=== PATIENT | female | born 2000 | race Caucasian/White ===

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

== ENCOUNTER 2019-01-19 07:06 | Emergency (ER) | payer OTHER ==
[2019-01-19] MEDS ORDERED: Sodium Chloride 0.9% 1,000 ML IV ONE (07:40)
--- NOTE | 2019-01-19 08:04 | C.PDOC ---
History Of Present Illness 18 year old female patient presents to the emergency room complaining of epigastric abdominal pain since 9 pm last night. Associated symptoms includes nausea and vomiting. Patient thinks her symptoms are from eating [employer]. Patient did not take any medication and only drank water. Patient notes she just vomited liquid and denies vomiting bile, hematemesis, fever, diarrhea, urinary symptoms, dizziness, shortness of breath and chest pain. Time Seen by Provider: 01/19/19 07:26 Chief Complaint (Nursing): Abdominal Pain History Per: Patient History/Exam Limitations: no limitations Onset/Duration Of Symptoms: Hrs Current Symptoms Are (Timing): Still Present Context: Food Location Of Pain/Discomfort: Epigastric Past Medical History Reviewed: Historical Data, Nursing Documentation, Vital Signs Vital Signs: Last Vital Signs Temp 97.8 F 01/19/19 07:11 Pulse 89 01/19/19 07:11 Resp 18 01/19/19 07:11 BP 125/83 01/19/19 07:11 Pulse Ox 99 01/19/19 07:11 - [facility] Procedures OTHER SKIN & SUBQ I D (06/07/13) Family History: States: No Known Family Hx - Social History Hx Tobacco Use: No Hx Alcohol Use: No Hx Substance Use: No - Immunization History Hx Tetanus Toxoid Vaccination: Yes Hx Influenza Vaccination: Yes Hx Pneumococcal Vaccination: No Review Of Systems Constitutional: Negative for: Fever Cardiovascular: Negative for: Chest Pain Respiratory: Negative for: Shortness of Breath Gastrointestinal: Positive for: Nausea, Vomiting, Abdominal Pain (epigastric ). Negative for: Diarrhea, Hematemesis, Other (bile in vomit) Genitourinary: Negative for: Dysuria, Frequency, Hematuria, Vaginal Discharge Neurological: Negative for: Dizziness Physical Exam - Physical Exam Appears: Non-toxic, No Acute Distress Skin: Warm, Dry, No Rash Head: Atraumatic, Normacephalic Eye(s): bilateral: Normal Inspection, EOMI Oral Mucosa: Moist Throat: Normal Neck: Supple Chest: Symmetrical Cardiovascular: Rhythm Regular, No Murmur Respiratory: Normal Breath Sounds, No Rales, No Rhonchi, No Wheezing Gastrointestinal/Abdominal: Bowel Sounds, Soft, Tenderness (mild epigastric tenderness on deep palpation ), No Distention, No Guarding, No Rebound Back: No CVA Tenderness Extremity: Bilateral: Atraumatic, Normal ROM Neurological/Psych: Oriented x3, Normal Speech Gait: Steady ED Course And Treatment - Laboratory Results Result Diagrams: 01/19/19 08:00 01/19/19 08:00 Lab Interpretation: Abnormal O2 Sat by Pulse Oximetry: 99 (RA) Pulse Ox Interpretation: Normal - CT Scan/US abdominal Other Rad Studies (CT/US): Read By Radiologist, Radiology Report Reviewed CT/US Interpretation: Accession No. : [id number]. Patient Name / ID : MATTIE Cordero / [id number]. Exam Date : 01/19/2019 09:22:30 ( Approved ). Study Comment : Sex / Age : F / 18Y. Creator : Donna Daley MD. Dictator : Donna Daley MD. Jig And Fixture Builder Apprentice : Mixer Operator Helper Hot Metal : Shukri Daley MD. Approver2 : Report Date : 01/19/2019 09:57:26. My Comment : . HISTORY: epigastric abd pain w. vomiting. COMPARISON: None available. TECHNIQUE: Sonographic evaluation of the abdomen. FINDINGS: LIVER: Measures 16.0 cm in sagittal dimension and appears within normal limits of echotexture. No focal hepatic mass identified. The main portal vein appears patent with normal directional flow. No intrahepatic bile duct dilatation. GALLBLADDER: 3 mm echogenic immobile focus consistent with polyp. No gallstones. No gallbladder wall thickening. Negative sonographic England's sign as assessed by the helpdesk analyst. COMMON BILE DUCT: Measures 2 mm. PANCREAS: Not well visualized. RIGHT KIDNEY: Measures 10.9 x 4.4 x 5.0 cm. No obstructing calculus or hydronephrosis identified. LEFT KIDNEY: Measures 11.9 x 5.9 x 5.4 cm. No obstructing calculus or hydronephrosis identified. SPLEEN: Measures approximately 9.4 cm. AORTA: Limited views appear unremarkable. IVC: Limited views appear unremarkable. OTHER FINDINGS: None. IMPRESSION: 3 mm immobile echogenic gallbladder focus consistent with polyp. Medical Decision Making Medical Decision Making: Impression: Abdominal pain with nausea and vomiting Plans: -- CBC -- CMP -- pepcid -- zofran -- IV fluids Labs reviewed: WBC elevated. CMP unremarkable no elevated Tbili, LFT or alk bre s. 0904 Ultrasound of abdomen ordered. Patient remained well in no distress and asked for sherin satish, tolerated PO challenge. 1000 US reviewed 3 mm echogenic immobile focus consistent with polyp. No gallstones. No gallbladder wall thickening. Negative sonographic England's sign as assessed by the helpdesk analyst. On second re-eval, the patient was sitting upright content, chatting with family at bedside. She reported feeling better and comfortable going home. Provided copy of radiology report and blood work. Rx given. Disposition Counseled Patient/Family Regarding: Diagnosis, Need For Followup, Rx Given - Disposition Disposition: HOME/ ROUTINE Disposition Time: 10:13 Condition: IMPROVED Additional Instructions: Take Zofran as needed for any nausea or vomiting Drink fluids (gatorade or sport drink) to stay hydrated Follow up with your doctor. Return to ER if pain worsens or other concern Prescriptions: Ondansetron ODT [Zofran ODT] 1 odt PO BID PRN #6 odt PRN Reason: Nausea/Vomiting Instructions: Nausea and Vomiting, Adult - POA Present On Arrival: None - Clinical Impression Clinical Impression: Epigastric abdominal pain, Vomiting - PA / TUBE SKIVER / Resident Statement / has reviewed & agrees with the documentation as recorded. - Scribe Statement The provider has reviewed the documentation as recorded by the Edwige Sarah Do All medical record entries made by the Luisibuna were at my direction and personally dictated by me. I have reviewed the chart and agree that the record accurately reflects my personal performance of the history, physical exam, medical decision making, and the department course for this patient. I have also personally directed, reviewed, and agree with the discharge instructions and disposition.
[2019-01-19 08:05] LABS: BASO # 0.1 K/uL (0.0-0.2); EOS # 0.1 K/uL (0.0-0.7); EOS % 0.6 % (0.0-4.0); HEMOGLOBIN 13.2 g/dL (11.0-16.0); LYMPH # 1.5 K/uL (1.0-4.3); LYMPH % 9.6 % (20.0-40.0); MONO # 0.8 K/uL (0.0-0.8)
[2019-01-19] MEDS ORDERED: Sodium Chloride 0.9% 1,000 ML ONE (08:07)
[2019-01-19 08:10] LABS: BASO % 0.6 % (0.0-2.0); MEAN CELL VOLUME 87.2 fL (81.0-99.0); MEAN CORPUSCULAR HEMOGLOBIN 28.5 pg (27.0-31.0); MEAN CORPUSCULAR HGB CONC 32.7 g/dL (33.0-37.0); MONO % 4.9 % (0.0-10.0); NEUT # 13.1 K/uL (1.8-7.0); NEUT % 84.3 % (50.0-75.0); PLATELET COUNT 296 K/uL (130-400); RBC 4.64 Mil/uL (3.80-5.20); RED CELL DISTRIBUTION WIDTH 16.2 % (11.5-14.5); WHITE BLOOD COUNT 15.6 K/uL (4.8-10.8)
[2019-01-19 08:18] LABS: ALB/GLOB RATIO 1.5 (1.0-2.1); ALBUMIN 4.7 g/dL (3.5-5.0); ALT/SGPT 23 U/L (9-52); AST/SGOT 27 U/L (14-36); BLOOD UREA NITROGEN 10 mg/dL (7-17); CALCIUM 9.4 mg/dl (8.6-10.4); GFR NON-AFRICAN AMERICAN > 60
[2019-01-19 08:59] LABS: EOSINOPHIL 1 % (0-4); LYMPHOCYTE 12 % (20-40); MONOCYTE 4 % (0-10); NEUTROPHIL 83 % (50-75); PLATELET ESTIMATE NORMAL (NORMAL); TOTAL CELLS COUNTED 100
[2019-01-19 09:07] LABS: SQUAMOUS EPITHIAL 1 /hpf (0-5); URINE BACTERIA RARE (<OCC); URINE BILIRUBIN NEGATIVE (NEGATIVE); URINE BLOOD NEGATIVE (NEGATIVE); URINE CLARITY Clear (Clear); URINE COLOR Yellow (YELLOW); URINE GLUCOSE (UA) NORMAL (Normal); URINE LEUKOCYTE ESTERASE NEG Leu/uL (Negative); URINE PROTEIN NEGATIVE (NEGATIVE); URINE UROBILINOGEN NORMAL mg/dL (0.2-1.0)
[2019-01-19 09:57] VITALS: BP 110/70; PULSE 70; RESP 20; TEMP 99.1
--- NOTE | 2019-01-19 10:01 | US ---
HISTORY: epigastric abd pain w. vomiting COMPARISON: None available. TECHNIQUE: Sonographic evaluation of the abdomen. FINDINGS: LIVER: Measures 16.0 cm in sagittal dimension and appears within normal limits of echotexture. No focal hepatic mass identified. The main portal vein appears patent with normal directional flow. No intrahepatic bile duct dilatation. GALLBLADDER: 3 mm echogenic immobile focus consistent with polyp. No gallstones. No gallbladder wall thickening. Negative sonographic England's sign as assessed by the hog scraper. COMMON BILE DUCT: Measures 2 mm. PANCREAS: Not well visualized. RIGHT KIDNEY: Measures 10.9 x 4.4 x 5.0 cm. No obstructing calculus or hydronephrosis identified. LEFT KIDNEY: Measures 11.9 x 5.9 x 5.4 cm. No obstructing calculus or hydronephrosis identified. SPLEEN: Measures approximately 9.4 cm. AORTA: Limited views appear unremarkable. IVC: Limited views appear unremarkable. OTHER FINDINGS: None. IMPRESSION: 3 mm immobile echogenic gallbladder focus consistent with polyp.
[2019-01-19 10:14] VITALS: O2SAT 99
== END 2019-01-19 10:22 | disposition home or self-care (01) ==
LOC: C.ER 07:06
DX: R10.13 Epigastric pain (principal); R11.10 Vomiting, unspecified
CPT/HCPCS: 76700; 80053; 81001; 85025; 96361; 96374; 96375; 99284; J2405; J7030

== ENCOUNTER 2019-03-03 05:46 | Emergency (ER) | payer OTHER ==
[2019-03-03] MEDS ORDERED: Sodium Chloride 0.9% 1,000 ML IV STA (07:26)
[2019-03-03] MEDS ORDERED: Sodium Chloride 0.9% 1,000 ML ONE (07:36)
[2019-03-03 07:41] LABS: BASO % 0.6 % (0.0-2.0); EOS % 0.6 % (0.0-4.0); HEMOGLOBIN 13.1 g/dL (11.0-16.0); LYMPH # 0.5 K/uL (1.0-4.3); LYMPH % 8.9 % (20.0-40.0); MEAN CELL VOLUME 87.3 fL (81.0-99.0); MEAN CORPUSCULAR HEMOGLOBIN 29.2 pg (27.0-31.0); MEAN CORPUSCULAR HGB CONC 33.4 g/dL (33.0-37.0); MEAN PLATELET VOLUME 8.4 fL (7.2-11.7); MONO # 0.6 K/uL (0.0-0.8); NEUT # 4.6 K/uL (1.8-7.0); NEUT % 78.9 % (50.0-75.0); PLATELET COUNT 207 K/uL (130-400); RBC 4.48 Mil/uL (3.80-5.20); RED CELL DISTRIBUTION WIDTH 15.9 % (11.5-14.5)
[2019-03-03 07:47] LABS: WHITE BLOOD COUNT 5.8 K/uL (4.8-10.8)
[2019-03-03 07:55] LABS: ALB/GLOB RATIO 1.7 (1.0-2.1); ALBUMIN 4.5 g/dL (3.5-5.0); ALT/SGPT 9 U/L (9-52); AST/SGOT 33 U/L (14-36); BLOOD UREA NITROGEN 9 mg/dL (7-17); CALCIUM 8.8 mg/dl (8.6-10.4); GFR NON-AFRICAN AMERICAN > 60; LIPASE 35 U/L (23-300)
--- NOTE | 2019-03-03 08:23 | C.PDOC ---
History Of Present Illness 18 year old female presents for evaluation of abdominal pain associated with vomiting, subjective fever, and decreased PO intake for 4 days. The patient notes arriving from [place] 4 days ago. She notes dark vomit. Denies diarrh ea, sick contact, urinary symptoms, and any other associated symptoms. SHx: hernia at 1 years old <Polly Rajput - Last Filed: 03/03/19 09:30> History Per: Patient History/Exam Limitations: no limitations Onset/Duration Of Symptoms: Days (x4) Current Symptoms Are (Timing): Still Present Context: Travel Location Of Pain/Discomfort: Diffuse Radiation Of Pain To:: None Associated Symptoms: Fever (subjective ), Vomiting Recent travel outside of the [place]: Yes ([place]) <Polly Rajput - Last Filed: 03/03/19 09:30> <Amelia Recio - Last Filed: 03/07/19 13:13> Time Seen by Provider: 03/03/19 07:14 Chief Complaint (Nursing): GI Problem Past Medical History Reviewed: Historical Data, Nursing Documentation, Vital Signs Vital Signs: Last Vital Signs Temp 98.8 F 03/03/19 06:07 Pulse 62 03/03/19 06:07 Resp 20 03/03/19 06:07 BP 113/77 03/03/19 06:07 Pulse Ox 97 03/03/19 06:07 - [facility] Procedures OTHER SKIN & SUBQ I D (06/07/13) Family History: States: Unknown Family Hx - Social History Hx Tobacco Use: No Hx Alcohol Use: No Hx Substance Use: No - Immunization History Hx Tetanus Toxoid Vaccination: Yes Hx Influenza Vaccination: Yes Hx Pneumococcal Vaccination: No <Polyl Rajput - Last Filed: 03/03/19 09:30> Vital Signs: Last Vital Signs Temp 98.6 F 03/03/19 09:39 Pulse 68 03/03/19 09:39 Resp 18 03/03/19 09:39 BP 116/74 03/03/19 09:39 Pulse Ox 99 03/03/19 09:39 - Medical History PMH: No Chronic Diseases - [facility] Procedures OTHER SKIN & SUBQ I D (06/07/13) Family History: States: Unknown Family Hx <Amelia Recio - Last Filed: 03/07/19 13:13> Review Of Systems Constitutional: Positive for: Fever (subjective.) Gastrointestinal: Positive for: Nausea, Vomiting, Abdominal Pain. Negative for: Diarrhea <Polly Rajput - Last Filed: 03/03/19 09:30> Physical Exam - Physical Exam Appears: Well, No Acute Distress Skin: Warm, Dry Head: Atraumatic, Normacephalic Eye(s): bilateral: Normal Inspection Oral Mucosa: Moist Neck: Normal ROM, Supple Chest: Symmetrical, No Deformity Cardiovascular: Rhythm Regular, No Murmur Respiratory: Normal Breath Sounds, No Rales, No Rhonchi, No Wheezing Gastrointestinal/Abdominal: Normal Exam, Soft, No Tenderness Back: Normal Inspection, No CVA Tenderness Extremity: Bilateral: Atraumatic, Normal Color And Temperature, Normal ROM Neurological/Psych: Oriented x3, Normal Speech, Normal Cognition <Polly Rajput - Last Filed: 03/03/19 09:30> ED Course And Treatment - Laboratory Results Result Diagrams: 03/03/19 07:36 03/03/19 07:36 Lab Results: Total Bilirubin 0.4 mg/dL (0.2-1.3) 03/03/19 07:36 AST 33 U/L (14-36) 03/03/19 07:36 ALT 9 U/L (9-52) D 03/03/19 07:36 Alkaline Phosphatase 70 U/L (38-126) 03/03/19 07:36 Total Protein 7.0 g/dL (6.3-8.3) 03/03/19 07:36 Albumin 4.5 g/dL (3.5-5.0) 03/03/19 07:36 Globulin 2.6 gm/dL (2.2-3.9) 03/03/19 07:36 Albumin/Globulin Ratio 1.7 (1.0-2.1) 03/03/19 07:36 Lipase 35 U/L (23-300) 03/03/19 07:36 O2 Sat by Pulse Oximetry: 97 (RA) Pulse Ox Interpretation: Normal <Polly Rajput Last Filed: 03/03/19 09:30> - Laboratory Results Result Diagrams: 03/03/19 07:36 03/03/19 07:36 Lab Results: Total Bilirubin 0.4 mg/dL (0.2-1.3) 03/03/19 07:36 AST 33 U/L (14-36) 03/03/19 07:36 ALT 9 U/L (9-52) D 03/03/19 07:36 Alkaline Phosphatase 70 U/L (38-126) 03/03/19 07:36 Total Protein 7.0 g/dL (6.3-8.3) 03/03/19 07:36 Albumin 4.5 g/dL (3.5-5.0) 03/03/19 07:36 Globulin 2.6 gm/dL (2.2-3.9) 03/03/19 07:36 Albumin/Globulin Ratio 1.7 (1.0-2.1) 03/03/19 07:36 Lipase 35 U/L (23-300) 03/03/19 07:36 Urine Color Fransisca (YELLOW) 03/03/19 08:44 Urine Clarity Hazy (Clear) 03/03/19 08:44 Urine pH 5.0 (5.0-8.0) 03/03/19 08:44 Ur Specific [place] 1.035 (1.003-1.030) H 03/03/19 08:44 Urine Protein 2+ mg/dL (NEGATIVE) H 03/03/19 08:44 Urine Glucose (UA) Normal mg/dL (Normal) 03/03/19 08:44 Urine Ketones 1+ mg/dL (NEGATIVE) H 03/03/19 08:44 Urine Blood 3+ (NEGATIVE) H 03/03/19 08:44 Urine Nitrate Negative (NEGATIVE) 03/03/19 08:44 Urine Bilirubin Negative (NEGATIVE) 03/03/19 08:44 Urine Urobilinogen 4.0 mg/dL (0.2-1.0) H 03/03/19 08:44 Ur Leukocyte Esterase Neg Marvel/uL (Negative) 03/03/19 08:44 Urine WBC (Auto) 7 /hpf (0-5) H 03/03/19 08:44 Urine RBC (Auto) 384 /hpf (0-3) H 03/03/19 08:44 Ur Squamous Epith Cells 2 /hpf (0-5) 03/03/19 08:44 Urine HCG, Qual Negative (NEGATIVE) 03/03/19 08:44 Urine HCG, Qual Negative (NEGATIVE) 03/03/19 08:44 <Amelia Recio - Last Filed: 03/07/19 13:13> Medical Decision Making Medical Decision Making: Initial plan: -Blood sent. -Pepcid -Zofran -HCG Urine -Urinalysis Progress/Update: Pt stable for discharge home. Prescribed Pepcid and advised to return if symptoms worsen. <Polly Rajput - Last Filed: 03/03/19 09:30> Disposition <Polly Rajput - Last Filed: 03/03/19 09:30> - Disposition Disposition Time: 09:40 - POA Present On Arrival: None <Amelia Recio - Last Filed: 03/07/19 13:13> - Disposition Referrals: [facility] [Outside] Disposition: HOME/ ROUTINE Condition: STABLE Additional Instructions: Follow up with the medical doctor within 1-2 days. Return if worsened. Prescriptions: Famotidine [Pepcid] 20 mg PO BID #20 tab Instructions: Viral Syndrome (DC), Gastritis Forms: [employer] (Occitan) - Clinical Impression Clinical Impression: Abdominal pain, Gastritis - PA / DYNAMIC ETCHING PROCESSOR / Resident Statement MD/DO has reviewed & agrees with the documentation as recorded. - Scribe Statement The provider has reviewed the documentation as recorded by the Scribe (Ofelia Antoine) All medical record entries made by the Scribe were at my direction and personally dictated by me. I have reviewed the chart and agree that the record accurately reflects my personal performance of the history, physical exam, medical decision making, and the department course for this patient. I have also personally directed, reviewed, and agree with the discharge instructions and disposition. <Polly Rajput - Last Filed: 03/03/19 09:30>
[2019-03-03 08:44] LABS: LYMPHOCYTE 7 % (20-40); MONOCYTE 8 % (0-10); NEUTROPHIL 85 % (50-75); PLATELET ESTIMATE NORMAL (NORMAL); TOTAL CELLS COUNTED 100
[2019-03-03 08:47] LABS: ANISOCYTOSIS SLIGHT
[2019-03-03 08:50] LABS: HYPOCHROMIC SLIGHT
[2019-03-03 08:51] LABS: SQUAMOUS EPITHIAL 2 /hpf (0-5); URINE BILIRUBIN NEGATIVE (NEGATIVE); URINE BLOOD 3+ (NEGATIVE); URINE CLARITY Hazy (Clear); URINE COLOR Amber (YELLOW); URINE GLUCOSE (UA) NORMAL (Normal); URINE LEUKOCYTE ESTERASE NEG Leu/uL (Negative); URINE PROTEIN 2+ mg/dL (NEGATIVE)
[2019-03-03 08:52] LABS: LARGE PLATELETS PRESENT
[2019-03-03 08:53] LABS: HCG,QUALITATIVE URINE NEGATIVE (NEGATIVE)
[2019-03-03 09:40] VITALS: BP 116/74; PULSE 68; RESP 18; TEMP 98.6; O2SAT 99
--- NOTE | 2019-03-03 13:35 | RAD ---
Date of service: 03/03/2019 PROCEDURE: CHEST RADIOGRAPH, 1 VIEW HISTORY: abd pain COMPARISON: No prior similar study available for comparison FINDINGS: LUNGS: Clear. PLEURA: No pneumothorax or pleural fluid seen. CARDIOVASCULAR: No aortic atherosclerotic calcification present. Normal. OSSEOUS STRUCTURES: No significant abnormalities. VISUALIZED UPPER ABDOMEN: Normal. OTHER FINDINGS: None. IMPRESSION: No active disease.
== END 2019-03-03 09:43 | disposition home or self-care (01) ==
LOC: C.ER 05:46
DX: K29.70 Gastritis, unspecified, without bleeding (principal); R10.9 Unspecified abdominal pain
CPT/HCPCS: 71045; 80053; 81001; 83690; 84703; 85025; 96361; 96374; 96375; 99285; J2405; J7030

== ENCOUNTER 2019-04-14 07:21 | Emergency (ER) | payer OTHER ==
[2019-04-14 07:38] VITALS: TEMP 98.1; O2SAT 99
[2019-04-14] MEDS ORDERED: Sodium Chloride 0.9% 1,000 ML IV ONE (07:43)
[2019-04-14] MEDS ORDERED: Sodium Chloride 0.9% 1,000 ML ONE (07:51)
[2019-04-14 08:01] LABS: BASO % 0.5 % (0.0-2.0); EOS # 0.1 K/uL (0.0-0.7); EOS % 0.7 % (0.0-4.0); HEMOGLOBIN 13.1 g/dL (11.0-16.0); LYMPH # 1.9 K/uL (1.0-4.3); LYMPH % 19.2 % (20.0-40.0); MEAN CELL VOLUME 87.9 fL (81.0-99.0); MEAN CORPUSCULAR HEMOGLOBIN 30.3 pg (27.0-31.0); MEAN CORPUSCULAR HGB CONC 34.4 g/dL (33.0-37.0); MEAN PLATELET VOLUME 7.9 fL (7.2-11.7); MONO # 0.7 K/uL (0.0-0.8); MONO % 6.7 % (0.0-10.0); NEUT # 7.1 K/uL (1.8-7.0); NEUT % 72.9 % (50.0-75.0); RBC 4.32 Mil/uL (3.80-5.20); RED CELL DISTRIBUTION WIDTH 15.4 % (11.5-14.5)
[2019-04-14 08:03] LABS: WHITE BLOOD COUNT 9.7 K/uL (4.8-10.8)
[2019-04-14 08:17] LABS: ALB/GLOB RATIO 1.5 (1.0-2.1); ALBUMIN 4.3 g/dL (3.5-5.0); ALT/SGPT 17 U/L (9-52); AST/SGOT 32 U/L (14-36); BLOOD UREA NITROGEN 10 mg/dL (7-17); CALCIUM 9.4 mg/dl (8.6-10.4); GFR NON-AFRICAN AMERICAN > 60; LIPASE 40 U/L (23-300)
--- NOTE | 2019-04-14 08:23 | C.PDOC ---
History Of Present Illness 19 year old female presents to the ED complaining of vomiting for the last 2 days. Reports she had a lot of mixed drinks 2 days ago and developed vomiting afterwards. Notes vomiting progressed over the next day and is associated with 3 episodes of loose stools. Reports improvement of symptoms today. Denies any GI bleeding, dysuria, hematuria, back pain, fever or chills. Denies any sick contacts or recent travels. Time Seen by Provider: 04/14/19 07:34 Chief Complaint (Nursing): Abdominal Pain History Per: Patient History/Exam Limitations: no limitations Onset/Duration Of Symptoms: Days (2) Current Symptoms Are (Timing): Still Present Associated Symptoms: Vomiting, Diarrhea. denies: Fever, Chills, Back Pain, Chest Pain, Urinary Symptoms Past Medical History Reviewed: Historical Data, Nursing Documentation, Vital Signs Vital Signs: Last Vital Signs Temp 98.1 F 04/14/19 07:34 Pulse 62 04/14/19 07:34 Resp 17 04/14/19 07:34 BP 121/79 04/14/19 07:34 Pulse Ox 99 04/14/19 07:34 Primary Care Provider: FAMILY PROVIDER,NO - Medical History PMH: No Chronic Diseases Other Surgeries: Hx of surgeries - [facility] Procedures OTHER SKIN & SUBQ I D (06/07/13) Family History: States: No Known Family Hx - Social History Hx Tobacco Use: No Hx Alcohol Use: Yes Hx Substance Use: No - Immunization History Hx Tetanus Toxoid Vaccination: Yes Hx Influenza Vaccination: Yes Hx Pneumococcal Vaccination: No Review Of Systems Except As Marked, All Systems Reviewed And Found Negative. Constitutional: Negative for: Fever, Chills Respiratory: Negative for: Shortness of Breath Gastrointestinal: Positive for: Vomiting, Diarrhea. Negative for: Hematochezia, Hematemesis Genitourinary: Negative for: Dysuria, Hematuria Physical Exam - Physical Exam Appears: Non-toxic, No Acute Distress Skin: Warm, Dry, No Rash Head: Normacephalic Eye(s): bilateral: Normal Inspection Nose: Normal Oral Mucosa: Moist Neck: Supple Chest: Symmetrical Cardiovascular: Rhythm Regular Respiratory: Normal Breath Sounds, No Rales, No Rhonchi, No Wheezing Gastrointestinal/Abdominal: Soft, No Tenderness Neurological/Psych: Oriented x3, Normal Speech Gait: Steady ED Course And Treatment - Laboratory Results Result Diagrams: 04/14/19 07:58 04/14/19 07:58 Lab Results: Total Bilirubin 0.5 mg/dL (0.2-1.3) 04/14/19 07:58 AST 32 U/L (14-36) 04/14/19 07:58 ALT 17 U/L (9-52) 04/14/19 07:58 Alkaline Phosphatase 71 U/L (38-126) 04/14/19 07:58 Total Protein 7.2 g/dL (6.3-8.3) 04/14/19 07:58 Albumin 4.3 g/dL (3.5-5.0) 04/14/19 07:58 Globulin 2.9 gm/dL (2.2-3.9) 04/14/19 07:58 Albumin/Globulin Ratio 1.5 (1.0-2.1) 04/14/19 07:58 Lipase 40 U/L (23-300) 04/14/19 07:58 O2 Sat by Pulse Oximetry: 99 (RA) Pulse Ox Interpretation: Normal - Other Rad CXR X-Ray: Viewed By Me, Read By Radiologist Interpretation: Accession No. : [id number]. Patient Name / ID : MATTIE FLORES A / [id number]. Exam Date : 04/14/2019 08:20:03 ( Approved ). Study Comment : Sex / Age : F / 19Y. Creator : Donna Daley MD. Dictator : Donna Daley MD. Documentation Billing Clerk : Home Housekeeper : Donna Daley MD. Approver2 : Report Date : 04/14/2019 08:51:21. My Comment : . HISTORY: abd pain. COMPARISON: Chest x-ray performed 03/03/19. TECHNIQUE: Chest, one view. FINDINGS: LUNGS: No focal consolidation. Please note that chest x-ray has limited sensitivity for the detection of pulmonary masses. PLEURA: No significant pleural effusion i dentified. No definite pneumothorax . CARDIOVASCULAR: The cardiomediastinal silhouette appears within normal limits of size. No significant atherosclerotic calcification present. OSSEOUS STRUCTURES: No acute osseous abnormality identified. VISUALIZED UPPER ABDOMEN: Unremarkable. OTHER FINDINGS: None. IMPRESSION: No acute findings identified. Medical Decision Making Medical Decision Making: Plan - CXR - Pepcid 20mg IVP - IV Fluids - UA - HCG - Bloodwork On re-exam, the patient reports improvement of symptoms. Lungs are CTA, heart is RRR, abdomen is soft, non-tender and the patient is tolerating PO well. Pt is ambulatory in the ED with steady gait. Follow up with the medical doctor within 1-2 days. Return if worsened. Disposition - Disposition Referrals: [facility] at [facility] [Outside] Disposition: HOME/ ROUTINE Disposition Time: 10:23 Condition: GOOD Additional Instructions: Follow up with the medical doctor within 1-2 days. Return if worsened. Prescriptions: Famotidine [Pepcid] 20 mg PO BID #20 tab Instructions: Gastritis (DC) Forms: [employer] (French) - Clinical Impression Clinical Impression: Vomiting, Gastritis - PA / MEDICAL AFFAIRS DIRECTOR / Resident Statement MD/DO has reviewed & agrees with the documentation as recorded. - Scribe Statement The provider has reviewed the documentation as recorded by the Scribuna Morrow All medical record entries made by the Luisibuna were at my direction and personally dictated by me. I have reviewed the chart and agree that the record accurately reflects my personal performance of the history, physical exam, medical decision making, and the department course for this patient. I have also personally directed, reviewed, and agree with the discharge instructions and disposition.
--- NOTE | 2019-04-14 08:54 | RAD ---
HISTORY: abd pain COMPARISON: Chest x-ray performed 03/03/19 TECHNIQUE: Chest, one view. FINDINGS: LUNGS: No focal consolidation. Please note that chest x-ray has limited sensitivity for the detection of pulmonary masses. PLEURA: No significant pleural effusion identified. No definite pneumothorax . CARDIOVASCULAR: The cardiomediastinal silhouette appears within normal limits of size. No significant atherosclerotic calcification present. OSSEOUS STRUCTURES: No acute osseous abnormality identified. VISUALIZED UPPER ABDOMEN: Unremarkable. OTHER FINDINGS: None. IMPRESSION: No acute findings identified.
[2019-04-14 09:42] LABS: SQUAMOUS EPITHIAL 4 /hpf (0-5); URINE BILIRUBIN NEGATIVE (NEGATIVE); URINE BLOOD 3+ (NEGATIVE); URINE CLARITY Clear (Clear); URINE COLOR Yellow (YELLOW); URINE GLUCOSE (UA) NORMAL (Normal); URINE LEUKOCYTE ESTERASE NEG Leu/uL (Negative); URINE PROTEIN NEGATIVE (NEGATIVE); URINE UROBILINOGEN NORMAL mg/dL (0.2-1.0)
[2019-04-14 10:24] VITALS: BP 117/70; PULSE 58; RESP 20
== END 2019-04-14 10:30 | disposition home or self-care (01) ==
LOC: C.ER 07:21
DX: K29.70 Gastritis, unspecified, without bleeding (principal); R11.10 Vomiting, unspecified
CPT/HCPCS: 71045; 80053; 81001; 83690; 84703; 85025; 96361; 96374; 96375; 99285; J2405; J2765; J7030